=== PATIENT | male | born 1980 | race Two or more races ===

== ENCOUNTER 2022-03-02 16:26 | Emergency (ER) | payer MEDICAID | END 2022-03-02 19:38 | disposition left against medical advice (07) | LOC: DL.ED 16:26 | DX: Z53.21 Procedure and treatment not carried out due to patient leaving prior to being seen by health care provider (principal) ==

== ENCOUNTER 2022-04-27 17:57 | Emergency (ER) | payer MEDICAID ==
[2022-04-27] MEDS ORDERED: Sodium Chloride 0.9% 10 ML Syringe FLUSH PRN (18:26)
[2022-04-27 19:40] LABS: ANION GAP 17.1 mEq/L (7-13); CHLORIDE,CL 94 mmol/L (98-107); SODIUM,NA 131 mmol/L (136-145)
[2022-04-27 19:42] LABS: ESTIMATED GFR 96 mL/min (>=60)
[2022-04-27] MEDS ORDERED: Iopamidol 612 MG/ML 100 ML Bottle IVPUSH ONE (19:45)
[2022-04-27] MEDS ORDERED: Sodium Chloride 0.9% 1,000 ML IV ONE (19:46)
[2022-04-27] MEDS ORDERED: Amoxicillin/Clavulanate K 875-125 MG Tab PO ONE (20:38)
[2022-04-27] MEDS ORDERED: methylPREDNISolone Sodium Succinate 125 MG/2 ML SDV IVPUSH ONE (20:38)
== END 2022-04-27 20:50 | disposition home or self-care (01) ==
LOC: DL.ED 17:57
DX: J02.9 Acute pharyngitis, unspecified (principal); R59.1 Generalized enlarged lymph nodes; R73.9 Hyperglycemia, unspecified
CPT/HCPCS: 36415; 70491; 80053; 83605; 84145; 84443; 85025; 86140; 87081; 87430; 96361; 96374; 99284; 99284-25; A9270-GY; J2930; J7030; Q9967

== ENCOUNTER 2022-05-21 20:12 | Emergency (ER) | payer SELFPAY ==
[2022-05-21 21:17] LABS: CORONAVIRUS COVID-19 NAA NEGATIVE (NEGATIVE); RESPIRATORY SYNCYTIAL VIR NAA NEGATIVE (NEGATIVE)
[2022-05-21 21:34] LABS: ANION GAP 12.4 mEq/L (7-13)
[2022-05-21] MEDS ORDERED: Penicillin G Benzathine/Procaine 600-600 1.2 Millunits/2 ML Syringe IM ONE (21:36)
[2022-05-21] MEDS ORDERED: Cefuroxime 250 MG Tab PO ONE (21:52)
[2022-05-21] MEDS ORDERED: Sodium Chloride 0.9% 1,000 ML IV ONE (22:23)
== END 2022-05-21 23:02 | disposition home or self-care (01) ==
LOC: DL.ED 20:12
DX: J02.0 Streptococcal pharyngitis (principal); E80.6 Other disorders of bilirubin metabolism; E11.65 Type 2 diabetes mellitus with hyperglycemia; Z72.0 Tobacco use; Z79.84 Long term (current) use of oral hypoglycemic drugs; Z20.822 Contact with and (suspected) exposure to COVID-19
CPT/HCPCS: 0241U; 36415; 80053; 83605; 85025; 86140; 87040; 87430; 96372; 99283; 99284; A9270-GY; J0558; J7030

== ENCOUNTER 2023-10-26 11:38 | Observation (INO) | payer BC ==
[2023-10-26] MEDS ORDERED: Docusate Sodium 100 MG Cap PO PRN (13:38)
[2023-10-26] MEDS: Lisinopril 10 MG Tab PO SCH (14:22)
[2023-10-26] MEDS: metFORMIN 500 MG Tab PO SCH (14:22)
[2023-10-26] MEDS: glipiZIDE 5 MG Tab PO SCH (14:22)
[2023-10-26] MEDS: Piperacillin/Tazobactam 4.5 GM in Sodium Chloride 0.9% 100 ML IV ONE (14:23)
[2023-10-26] MEDS: oxyCODONE 5 MG Tab PO PRN (14:23)
[2023-10-26] MEDS: Sodium Chloride 0.9% 100 ML ONE (14:24)
[2023-10-26] MEDS: Sodium Chloride 0.9% 1,000 ML IV SCH (14:28)
[2023-10-26] MEDS: Piperacillin/Tazobactam 4.5 GM in Sodium Chloride 0.9% 100 ML IV SCH (14:30)
[2023-10-26] MEDS: Ibuprofen 600 MG Tab PO PRN (16:23)
[2023-10-26] MEDS: Morphine 2 MG/ML SYRINGE IVPUSH PRN (18:03)
[2023-10-26] MEDS: Lidocaine 1% 30 ML SDV ONE (20:15)
[2023-10-26] MEDS: atorvaSTATin 10 MG Tab PO SCH (21:01)
[2023-10-26] MEDS: traZODone 50 MG Tab PO SCH (21:01)
[2023-10-27 06:18] LABS: BASOPHILS PERCENT AUTO 0.4 % (0.0-1.0); HEMATOCRIT 44.2 % (40.0-54.0); HEMOGLOBIN 14.2 g/dL (14.0-18.0); MEAN CORPUSCULAR HEMOGLOBIN 29.2 pg (27.0-34.0); MEAN CORPUSCULAR HGB CONC 32.1 g/dL (33.0-35.0); MEAN CORPUSCULAR VOLUME 90.8 fL (80-100); MONOCYTES PERCENT AUTO 12.6 % (2-8); PLATELET COUNT,PLT 258 10^3/uL (150-450); RED BLOOD CELL COUNT 4.87 10^6/uL (4.6-6.2); WHITE BLOOD CELL COUNT,WBC 10.5 10^3/uL (5.0-10.0)
[2023-10-27 06:29] LABS: ANION GAP 10.2 mEq/L (7-13); CREATININE 0.96 mg/dL (0.70-1.30); EST CRCL DRUG DOSING (CG) 104.58 mL/min; POTASSIUM,K 4.2 mmol/L (3.5-5.1)
[2023-10-27] MEDS: Enoxaparin 40 MG/0.4 ML Syringe SUBCUT SCH (08:00)
[2023-10-27] MEDS: Insulin Lispro 100 Units/ML 3 ML Vial SUBCUT SCH (13:08)
[2023-10-27] MEDS: ALPRAZolam 0.25 MG Tab PO ONE ×2 (18:12→22:14)
[2023-10-27] MEDS: Ondansetron 4 MG Tab.DIS PO PRN (20:29)
[2023-10-27] MEDS: Melatonin 3 MG Tab PO ONE (23:29)
== END 2023-10-28 13:25 | disposition home or self-care (01) ==
LOC: UNDOADMOB 11:38 → DL.MS 11:38 → UNDODISOB 10-28 13:25
PROVIDERS: ADMIT Internal Medicine; ATTEND Internal Medicine
DX: L03.115 Cellulitis of right lower limb (principal); I10 Essential (primary) hypertension; E11.65 Type 2 diabetes mellitus with hyperglycemia; Z91.199 Patient's noncompliance with other medical treatment and regimen due to unspecified reason; Z79.84 Long term (current) use of oral hypoglycemic drugs; Z79.899 Other long term (current) drug therapy; F17.200 Nicotine dependence, unspecified, uncomplicated
CPT/HCPCS: 36415; 80048; 82947; 85025; 87040; A9270; J2270; J2543; J3490; J7030; 99223; 99233; 99239; J1650

== ENCOUNTER 2023-11-12 20:38 | Emergency (ER) | payer BC ==
[2023-11-12] MEDS ORDERED: Vancomycin 2 GM in Sodium Chloride 0.9% 500 ML IV ONE (22:43)
[2023-11-12] MEDS: Sodium Chloride 0.9% 10 ML Syringe FLUSH PRN (22:54)
[2023-11-12 23:04] LABS: BASOPHILS PERCENT AUTO 0.5 % (0.0-1.0); EOSINOPHILS PERCENT AUTO 1.5 % (1.0-3.0); HEMATOCRIT 40.4 % (40.0-54.0); HEMOGLOBIN 13.5 g/dL (14.0-18.0); LYMPHOCYTES PERCENT AUTO 30.5 % (20.5-50.1); MEAN CORPUSCULAR HEMOGLOBIN 29.5 pg (27.0-34.0); MEAN CORPUSCULAR HGB CONC 33.4 g/dL (33.0-35.0); MEAN CORPUSCULAR VOLUME 88.2 fL (80-100); MONOCYTES PERCENT AUTO 10.2 % (2-8); NEUTROPHILS PERCENT AUTO 57.3 % (42.2-75.2); PLATELET COUNT,PLT 240 10^3/uL (150-450); RED BLOOD CELL COUNT 4.58 10^6/uL (4.6-6.2); WHITE BLOOD CELL COUNT,WBC 12.3 10^3/uL (5.0-10.0)
[2023-11-12] MEDS: Ketorolac 30 MG/ML SDV IVPUSH ONE (23:12)
[2023-11-12] MEDS: Sodium Chloride 0.9% 1,000 ML IV ONE (23:12)
[2023-11-12] MEDS: Ondansetron 4 MG/2 ML SDV IVPUSH ONE (23:13)
[2023-11-12] MEDS: Acetaminophen 500 MG Tab PO ONE (23:13)
[2023-11-12 23:25] LABS: ALANINE AMINOTRANSFERASE,ALT 24 U/L (16-63); ALBUMIN 3.4 g/dL (3.4-5.0); ALKALINE PHOSPHATASE 79 U/L (46-116); ANION GAP 12.6 mEq/L (7-13); ASPARTATE AMNIOTRANSFERASE,AST 10 U/L (15-37); BILIRUBIN TOTAL 0.6 mg/dL (0.2-1.0); BLOOD UREA NITROGEN,BUN 19 mg/dL (7-18); BUN/CREATININE RATIO 20.4 (No establ ref range); C-REACTIVE PROTEIN 0.86 ng/dL (<=0.50); CALCIUM 8.7 mg/dL (8.5-10.1); CARBON DIOXIDE,CO2 29 mmol/L (21-32); CHLORIDE,CL 100 mmol/L (98-107); CREATININE 0.93 mg/dL (0.70-1.30); ESTIMATED GFR 104 mL/min (>=60); GLUCOSE RANDOM 214 mg/dL (70-99); MAGNESIUM 1.7 mg/dL (1.8-2.4); POTASSIUM,K 3.6 mmol/L (3.5-5.1); PROTEIN TOTAL,TP 6.9 g/dL (6.4-8.2); SODIUM,NA 138 mmol/L (136-145)
[2023-11-12 23:28] LABS: LACTIC ACID 2.2 mmol/L (0.4-2.0)
[2023-11-12] MEDS: Bacitracin Oint 1 GM U/D Packet TOP ONE (23:45)
[2023-11-12] MEDS: Take Home: Doxycycline 100 MG Cap, 4 Cap Pack PO ONE (23:46)
== END 2023-11-13 00:02 | disposition home or self-care (01) ==
LOC: DL.ED 20:38
DX: L03.115 Cellulitis of right lower limb (principal); I10 Essential (primary) hypertension; E11.9 Type 2 diabetes mellitus without complications; Z79.84 Long term (current) use of oral hypoglycemic drugs; Z79.899 Other long term (current) drug therapy
CPT/HCPCS: 36415; 80053; 83605; 83735; 84145; 85025; 86140; 87040; 96374; 96375; 99284; A9270; J1885; J2405; J7030; J3490

== ENCOUNTER 2023-11-13 16:43 | Inpatient (IN) | payer BC ==
[2023-11-13] MEDS: Sodium Chloride 0.9% 1,000 ML IV ONE ×2 (18:01→23:14)
[2023-11-13] MEDS: Diphtheria,Pertussis(Acell),Tetanus Vaccine 0.5 ML Syringe IM ONE (18:03)
[2023-11-13 18:06] LABS: BASOPHILS PERCENT AUTO 0.3 % (0.0-1.0); EOSINOPHILS PERCENT AUTO 1.8 % (1.0-3.0); HEMOGLOBIN 13.2 g/dL (14.0-18.0); MEAN CORPUSCULAR HEMOGLOBIN 29.6 pg (27.0-34.0); MEAN CORPUSCULAR VOLUME 89.7 fL (80-100); MONOCYTES PERCENT AUTO 9.6 % (2-8); NEUTROPHILS PERCENT AUTO 61.3 % (42.2-75.2); PLATELET COUNT,PLT 235 10^3/uL (150-450); RED BLOOD CELL COUNT 4.46 10^6/uL (4.6-6.2); WHITE BLOOD CELL COUNT,WBC 11.9 10^3/uL (5.0-10.0)
[2023-11-13 18:29] LABS: A/G RATIO 0.94; ALANINE AMINOTRANSFERASE,ALT 23 U/L (16-63); ALBUMIN 3.3 g/dL (3.4-5.0); ALKALINE PHOSPHATASE 79 U/L (46-116); ANION GAP 10.9 mEq/L (7-13); ASPARTATE AMNIOTRANSFERASE,AST 9 U/L (15-37); BILIRUBIN TOTAL 0.6 mg/dL (0.2-1.0); BLOOD UREA NITROGEN,BUN 13 mg/dL (7-18); BUN/CREATININE RATIO 16.2 (No establ ref range); C-REACTIVE PROTEIN 1.42 ng/dL (<=0.50); CALCIUM 8.6 mg/dL (8.5-10.1); CARBON DIOXIDE,CO2 28 mmol/L (21-32); CHLORIDE,CL 102 mmol/L (98-107); CREATINE KINASE,CK 109 U/L (39-308); ESTIMATED GFR 112 mL/min (>=60); GLUCOSE RANDOM 219 mg/dL (70-99); POTASSIUM,K 3.9 mmol/L (3.5-5.1); PROTEIN TOTAL,TP 6.8 g/dL (6.4-8.2); SODIUM,NA 137 mmol/L (136-145)
[2023-11-13 18:32] LABS: LACTIC ACID 1.5 mmol/L (0.4-2.0)
[2023-11-13] MEDS: Iopamidol 612 MG/ML 100 ML Bottle IVPUSH ONE (18:45)
[2023-11-13] MEDS ORDERED: Flumazenil 0.1 MG/ML 5 ML MDV IVPUSH PRN (19:41)
[2023-11-13] MEDS: LORazepam 2 MG/ML SDV IVPUSH ONE (19:55)
[2023-11-13] MEDS: Piperacillin/Tazobactam 4.5 GM in Sodium Chloride 0.9% 100 ML IV ONE ×2 (20:02→20:53)
[2023-11-13] MEDS: Sodium Chloride 0.9% 10 ML Syringe FLUSH PRN (20:02)
[2023-11-13] MEDS ORDERED: Naloxone 2 MG/2 ML Syringe IVPUSH PRN ×3 (20:17→22:37)
[2023-11-13] MEDS: Vancomycin 2 GM in Sodium Chloride 0.9% 500 ML IV ONE (20:33)
[2023-11-13] MEDS: Morphine 2 MG/ML SYRINGE IVPUSH ONE ×2 (20:36→21:28)
[2023-11-13] MEDS: Clindamycin in 0.9 % Sod Chlor 900 MG in Premix Bag 1 BAG IV ONE (21:22)
[2023-11-13] MEDS ORDERED: Melatonin 3 MG Tab PO PRN (22:37)
[2023-11-13] MEDS ORDERED: Ondansetron 4 MG Tab.DIS PO PRN (22:37)
[2023-11-13] MEDS ORDERED: Insulin Lispro 100 Units/ML 3 ML Vial SUBCUT SCH (22:45)
[2023-11-14] MEDS: HYDROmorphone 0.5 MG/0.5 ML Syringe IVPUSH PRN (00:15)
[2023-11-14] MEDS: Lisinopril 10 MG Tab PO SCH (00:25)
[2023-11-14] MEDS: oxyCODONE 5 MG Tab PO PRN (05:15)
[2023-11-14 06:34] LABS: BASOPHILS PERCENT AUTO 0.3 % (0.0-1.0); EOSINOPHILS PERCENT AUTO 2.1 % (1.0-3.0); HEMATOCRIT 41.2 % (40.0-54.0); HEMOGLOBIN 13.6 g/dL (14.0-18.0); LYMPHOCYTES PERCENT AUTO 23.3 % (20.5-50.1); MEAN CORPUSCULAR HEMOGLOBIN 29.6 pg (27.0-34.0); MEAN CORPUSCULAR VOLUME 89.8 fL (80-100); MONOCYTES PERCENT AUTO 12.6 % (2-8); NEUTROPHILS PERCENT AUTO 61.7 % (42.2-75.2); PLATELET COUNT,PLT 223 10^3/uL (150-450); RED BLOOD CELL COUNT 4.59 10^6/uL (4.6-6.2); WHITE BLOOD CELL COUNT,WBC 8.6 10^3/uL (5.0-10.0)
[2023-11-14 06:56] LABS: ALBUMIN 3.1 g/dL (3.4-5.0); BILIRUBIN TOTAL 0.7 mg/dL (0.2-1.0); BUN/CREATININE RATIO 12.2 (No establ ref range); CALCIUM 8.5 mg/dL (8.5-10.1); CREATININE 0.74 mg/dL (0.70-1.30); EST CRCL DRUG DOSING (CG) 135.68 mL/min; PROTEIN TOTAL,TP 6.6 g/dL (6.4-8.2)
[2023-11-14 07:10] LABS: A/G RATIO 0.89
[2023-11-14] MEDS: metFORMIN 500 MG Tab PO SCH (08:40)
[2023-11-14] MEDS: VANCOmycin 1.5 GM/300 ML 1.5 GM in Premix Bag 1 BAG IV SCH (08:43)
[2023-11-14] MEDS: Enoxaparin 40 MG/0.4 ML Syringe SUBCUT SCH (08:43)
[2023-11-14] MEDS ORDERED: Sodium Chloride 0.9% 100 ML IV PRN (08:55)
[2023-11-14] MEDS: Ketorolac 30 MG/ML SDV IVPUSH PRN (11:07)
[2023-11-14] MEDS: atorvaSTATin 10 MG Tab PO SCH (20:44)
[2023-11-14] MEDS: traZODone 50 MG Tab PO SCH (21:35)
[2023-11-14] MEDS: Melatonin 3 MG Tab PO PRN (21:35)
[2023-11-15] MEDS: Insulin Lispro 100 Units/ML 3 ML Vial SUBCUT SCH (08:23)
[2023-11-15] MEDS: Non-Formulary Medication 1 Each (Diclofenac Sodium [Diclofenac Sodium] 75 MG Tablet.Dr) PO SCH (11:30)
[2023-11-15] MEDS: Ibuprofen 600 MG Tab PO PRN (16:07)
[2023-11-15] MEDS: ALPRAZolam 0.25 MG Tab PO PRN (18:16)
[2023-11-15] MEDS: hydrOXYzine HCl 25 MG Tab PO ONE (20:14)
== END 2023-11-16 10:35 | disposition home or self-care (01) | DRG 383 ==
LOC: DL.ED 16:43 → DL.MS 21:15
PROVIDERS: ADMIT Internal Medicine; ATTEND Internal Medicine
DX: L03.115 Cellulitis of right lower limb (principal); I10 Essential (primary) hypertension; E78.5 Hyperlipidemia, unspecified; F41.9 Anxiety disorder, unspecified; E11.65 Type 2 diabetes mellitus with hyperglycemia; F17.210 Nicotine dependence, cigarettes, uncomplicated; Z79.84 Long term (current) use of oral hypoglycemic drugs; Z79.899 Other long term (current) drug therapy
CPT/HCPCS: 36415; 73701; 80053; 80202; 82550; 82947; 83605; 84145; 85025; 86140; 87040; 90471; 90715; 93971; 96361; 96365; 96368; 96375; 99223; 99232; 99233; 99239; 99284; 99284-25; A9270-GY; J1170; J1650; J1815-GY; J1885; J2060; J2270; J2543; J3370; J3372; J3490; J7030; J7040; Q9967

== ENCOUNTER 2024-06-23 17:24 | Emergency (ER) | payer MEDICAID | END 2024-06-23 18:20 | disposition home or self-care (01) | LOC: DL.ED 17:24 | DX: S63.501A Unspecified sprain of right wrist, initial encounter (principal); I10 Essential (primary) hypertension; E11.9 Type 2 diabetes mellitus without complications; Z79.899 Other long term (current) drug therapy; Z79.1 Long term (current) use of non-steroidal anti-inflammatories (NSAID); Z79.84 Long term (current) use of oral hypoglycemic drugs; W19.XXXA Unspecified fall, initial encounter; Y93.67 Activity, basketball | CPT/HCPCS: 73110-RT; 99282; 99283 ==

== ENCOUNTER 2024-08-29 19:09 | Emergency (ER) | payer MEDICAID ==
[2024-08-29] MEDS ORDERED: Sodium Chloride 0.9% 10 ML Syringe FLUSH PRN (19:21)
[2024-08-29] MEDS: Ondansetron 4 MG/2 ML SDV IVPUSH ONE ×2 (19:36→22:13)
[2024-08-29] MEDS: Ketorolac 30 MG/ML SDV IVPUSH ONE ×2 (19:36→22:12)
[2024-08-29 19:39] LABS: BASOPHILS PERCENT AUTO 0.2 % (0.0-1.0); HEMATOCRIT 47.4 % (40.0-54.0); HEMOGLOBIN 16.3 g/dL (14.0-18.0); LYMPHOCYTES PERCENT AUTO 34.9 % (20.5-50.1); MEAN CORPUSCULAR HEMOGLOBIN 30.4 pg (27.0-34.0); MEAN CORPUSCULAR HGB CONC 34.4 g/dL (33.0-35.0); MEAN CORPUSCULAR VOLUME 88.3 fL (80-100); MONOCYTES PERCENT AUTO 10.6 % (2-8); NEUTROPHILS PERCENT AUTO 53.3 % (42.2-75.2); PLATELET COUNT,PLT 269 10^3/uL (150-450); RED BLOOD CELL COUNT 5.37 10^6/uL (4.6-6.2); WHITE BLOOD CELL COUNT,WBC 11.4 10^3/uL (5.0-10.0)
[2024-08-29] MEDS: Sodium Chloride 0.9% 1,000 ML IV ONE ×2 (19:52→20:58)
[2024-08-29 19:59] LABS: A/G RATIO 1.2; ALBUMIN 4.5 g/dL (3.4-5.0); ANION GAP 12.6 mEq/L (7-13); BILIRUBIN TOTAL 0.9 mg/dL (0.2-1.0); BUN/CREATININE RATIO 24.3 (No establ ref range); CALCIUM 10.5 mg/dL (8.5-10.1); CREATININE 1.48 mg/dL (0.70-1.30); EST CRCL DRUG DOSING (CG) 67.84 mL/min; POTASSIUM,K 4.6 mmol/L (3.5-5.1); PROTEIN TOTAL,TP 8.2 g/dL (6.4-8.2)
[2024-08-29 20:02] LABS: LACTIC ACID 1.3 mmol/L (0.4-2.0)
[2024-08-29 20:35] LABS: APPEARANCE,URINE SLIGHTLY CLOUDY (CLEAR); BILIRUBIN,URINE NEGATIVE (NEGATIVE); COLOR,URINE YELLOW (YELLOW); GLUCOSE,URINE NEGATIVE (NEGATIVE); KETONES,URINE NEGATIVE (NEGATIVE); LEUKOCYTE ESTERASE,URINE NEGATIVE (NEGATIVE); NITRITE,URINE NEGATIVE (NEGATIVE); OCCULT BLOOD,URINE NEGATIVE (NEGATIVE); PH,URINE 5.5 (5.0-9.0); PROTEIN,URINE 100 (NEGATIVE); UROBILINOGEN,URINE 0.2 mg/dL (0.2-1.0)
[2024-08-29 20:46] LABS: BACTERIA,URINE FEW /HPF (0-FEW/HPF); EPITHELIAL CELLS,URINE RARE /HPF (NOT SEEN); FINE GRANULAR CASTS,URINE FEW /LPF (NOT SEEN); MUCUS,URINE MANY /LPF (NOT SEEN); RBC,URINE 0-5 /HPF (0-5); WBC,URINE 0-5 /HPF (0-5/HPF)
[2024-08-29 20:47] LABS: AMORPHOUS SEDIMENT,URINE FEW /HPF (NOT SEEN)
[2024-08-29] MEDS: HYDROmorphone 1 MG/ML Syringe IVPUSH ONE ×2 (20:51→22:12)
[2024-08-29] MEDS: Iopamidol 612 MG/ML 100 ML Bottle IVPUSH ONE (22:13)
[2024-08-29] MEDS: LORazepam 2 MG/ML SDV IVPUSH ONE (22:23)
== END 2024-08-30 00:08 | disposition home or self-care (01) ==
LOC: DL.ED 19:09
DX: N20.0 Calculus of kidney (principal); I10 Essential (primary) hypertension; E11.9 Type 2 diabetes mellitus without complications; Z79.84 Long term (current) use of oral hypoglycemic drugs; Z79.899 Other long term (current) drug therapy
CPT/HCPCS: 36415; 74176; 74177; 80053; 81001; 82947; 83605; 83690; 85025; 96361; 96374; 96375; 96376; 99284; J1171; J1885; J2060; J2405; J7030; Q9967

== ENCOUNTER 2024-12-27 14:03 | Emergency (ER) | payer OTHER, MEDICAID | END 2024-12-27 15:27 | disposition home or self-care (01) | LOC: DL.ED 14:03 | DX: J32.9 Chronic sinusitis, unspecified (principal); I10 Essential (primary) hypertension; F17.200 Nicotine dependence, unspecified, uncomplicated; Z79.899 Other long term (current) drug therapy; Z79.84 Long term (current) use of oral hypoglycemic drugs | CPT/HCPCS: 99283 ==

== ENCOUNTER 2025-02-13 11:28 | Emergency (ER) | payer MEDICAID, OTHER ==
[2025-02-13] MEDS: Dexamethasone 4 MG/ML SDV IM ONE (12:03)
== END 2025-02-13 12:11 | disposition home or self-care (01) ==
LOC: DL.ED 11:28
DX: M62.830 Muscle spasm of back (principal); M25.512 Pain in left shoulder; I10 Essential (primary) hypertension; E11.9 Type 2 diabetes mellitus without complications; Z79.84 Long term (current) use of oral hypoglycemic drugs; Z79.899 Other long term (current) drug therapy
CPT/HCPCS: 96372; 99283; J1100